=== PATIENT | female | born 1980 | race Hispanic/Latino ===

== ENCOUNTER 2020-09-02 13:12 | Emergency (ER) | payer BC ==
--- NOTE | 2020-09-02 13:25 | EDM.PDOC ---
ED HPI GENERAL MEDICAL PROBLEM - General Chief Complaint: Chest Pain Stated Complaint: CHEST PAIN DOWN LEFT ARM Time Seen by Provider: 09/02/20 13:25 Source of Information: Reports: Patient, Old Records, RN, RN Notes Reviewed History Limitations: Reports: No Limitations - History of Present Illness INITIAL COMMENTS - FREE TEXT/NARRATIVE: Pt presents to ER with c/o acid burning from the upper stomach into her throat. Pt states the pain began about a week ago. She has been having trouble with food getting stuck when she tries to swallow, and often gags and has to vomit. Denies Hx of EGD/endoscopy. Admits to Hx of GERD, but has not had any relief with Omeprazole. Pt states that today the pain has been aching into the chest. Eating makes it worse. Nothing relieves the pain. Onset: Gradual Duration: Constant, Getting Worse Location: Reports: Chest, Abdomen Quality: Reports: Burning Severity: Severe Associated Symptoms: Reports: No Other Symptoms Treatments HATCH TENDER: Reports: Other Medication(s) (Omeprazole) - Related Data Allergies Allergy/AdvReac Type Severity Reaction Status Date / Time No Known Allergies Allergy Verified 05/01/18 07:31 Home Meds: Home Meds Albuterol [Proventil HFA] 1 - 2 puff INH ASDIRECTED 04/28/18 [History] Biotin 1 tab PO ASDIRECTED 04/28/18 [History] Blue-Green Algae [Spirulina] 500 mg PO DAILY 04/28/18 [History] Cranberry Ext/C/L. Sporogenes [Azo Cranberry] 1 tab PO DAILY 04/28/18 [History] EPINEPHrine [Epinephrine] 1 injection IM ASDIRECTED 04/28/18 [History] Levothyroxine 75 mcg PO DAILY 04/28/18 [History] Multivitamin with Minerals [Multiple Vitamin] 1 tab PO DAILY 04/28/18 [History] Superior-3/DHA/Epa/Fish Oil [Superior-3 Fish Oil 1,000 MG Sfgl] 1,000 mg PO DAILY 04/28/18 [History] Past Medical History HEENT History: Reports: Impaired Vision Other HEENT History: wears glasses Cardiovascular History: Reports: None Respiratory History: Reports: Asthma, Pneumonia, Recurrent Gastrointestinal History: Reports: GERD Genitourinary History: Reports: None PALLIATIVE CARE SPECIALIST History: Reports: Fibroids, Other (See Below) Other PALLIATIVE CARE SPECIALIST History: Ovarian cyst. breast biopsy due to fibroid Musculoskeletal History: Reports: Arthritis Neurological History: Reports: None Psychiatric History: Reports: None Endocrine/Metabolic History: Reports: Hypothyroidism, Obesity/BMI 30+, Other (See Below) Other Endocrine/Metabolic History: HX OF GOITER Hematologic History: Reports: Anemia, Iron Deficiency Immunologic History: Reports: None Oncologic (Cancer) History: Reports: None Dermatologic History: Reports: None - Infectious Disease History Infectious Disease History: Reports: Chicken Pox - Past Surgical History HEENT Surgical History: Reports: Oral Surgery Other HEENT Surgeries/Procedures: wisdom teeth removed Cardiovascular Surgical History: Reports: None GI Surgical History: Reports: None Female Surgical History: Reports: None Musculoskeletal Surgical History: Reports: None Social & Family History - Family History Family Medical History: No Pertinent Family History - Caffeine Use Caffeine Use: Reports: Coffee, Tea Other Caffeine Use: 1 cup - Living Situation & Occupation Living situation: Reports: with Family ED ROS GENERAL - Review of Systems Review Of Systems: Comprehensive ROS is negative, except as noted in HPI. ED EXAM, GENERAL - Physical Exam Exam: See Below Exam Limited By: No Limitations General Appearance: Alert, WD/WN, No Apparent Distress, Obese Eye Exam: Bilateral Eye: Normal Inspection Nose: Normal Inspection, Normal Mucosa, No Blood Throat/Mouth: Normal Inspection, Normal Lips, Normal Teeth, Normal Gums, Normal Oropharynx, Normal Voice, No Airway Compromise Head: Atraumatic, Normocephalic Neck: Normal Inspection, Supple, Non-Tender, Full Range of Motion Respiratory/Chest: No Respiratory Distress, Lungs Clear, Normal Breath Sounds, No Accessory Muscle Use, Chest Non-Tender Cardiovascular: Normal Peripheral Pulses, Regular Rate, Rhythm, No Edema, No Gallop, No JVD, No Murmur, No Rub GI/Abdominal: Normal Bowel Sounds, Soft, Non-Tender, No Organomegaly, No Distention, No Abnormal Bruit, No Mass Back Exam: Normal Inspection Extremities: Normal Inspection Neurological: Alert, Oriented, CN II-XII Intact, Normal Cognition, Normal Gait, No Motor/Sensory Deficits Psychiatric: Normal Affect, Normal Mood Skin Exam: Warm, Dry, Intact, Normal Color, No Rash #1 Interpretation EKG Date: 09/02/20 Time: 13:20 Rhythm: Other (SR) Rate (Beats/Min): 71 [place]: LAD-Left [place] Deviation P-Wave: Present QRS: Normal ST-T: Normal QT: Normal Comparison: NA - No Prior EKG Course - Orders/Labs/Meds Orders: Active Orders 24 hr Category Date Time Status EKG 12 Lead [EKG Documentation Completion] [RC] STAT Care 09/02/20 13:24 Act bernard Labs: Laboratory Tests 09/02/20 09/02/20 09/02/20 Range/Units 13:41 13:41 13:41 WBC 10.2 H (5.0-10.0) 10^3/uL RBC 4.49 (4.2-5.4) 10^6/uL Hgb 13.0 (12.0-16.0) g/dL Hct 39.6 (37.0-47.0) % MCV 88.2 (80-100) fL MCH 29.0 (27.0-34.0) pg MCHC 32.8 L (33.0-35.0) g/dL Plt Count 362 (150-450) 10^3/uL Neut % (Auto) 66.3 (42.2-75.2) % Lymph % (Auto) 20.3 L (20.5-50.1) % [place] % (Auto) 10.6 H (2-8) % Eos % (Auto) 2.5 (1.0-3.0) % Baso % (Auto) 0.3 (0.0-1.0) % D-Dimer, Quantitative 191 (0-400) ng/mL Sodium 137 (136-145) mmol/L Potassium 3.8 (3.5-5.1) mmol/L Chloride 101 (98-107) mmol/L Carbon Dioxide 28 (21-32) mmol/L Anion Gap 11.8 (7-13) mEq/L BUN 9 (7-18) mg/dL Creatinine 0.81 (0.55-1.02) mg/dL Est Cr Clr Drug Dosing TNP Estimated GFR (MDRD) > 60 BUN/Creatinine Ratio 11.1 (No establ ref range) Glucose 95 (70-99) mg/dL Calcium 8.1 L (8.5-10.1) mg/dL Total Bilirubin 0.7 (0.2-1.0) mg/dL AST 12 L (15-37) U/L ALT 22 (14-59) U/L Alkaline Phosphatase 100 (46-116) U/L Troponin I < 0.017 (0.000-0.056) ng/mL Total Protein 6.9 (6.4-8.2) g/dL Albumin 3.2 L (3.4-5.0) g/dL Globulin 3.7 Albumin/Globulin Ratio 0.86 Amylase 34 (25-115) U/L Lipase 66 L (73-393) U/L HCG, Qual Negative Meds: Medications Discontinued Medications Generic Name Dose Route Start Last Admin Trade Name Miguelq PRN Reason Stop Dose Admin Al Hydroxide/Mg Hydroxide 30 ml 09/02/20 13:34 09/02/20 13:47 Gi Cocktail Oral Solution 30 Ml PO 09/02/20 13:35 30 ml ONETIME ONE Administration Departure - Departure Time of Disposition: 14:59 Disposition: Home, Self-Care 01 Condition: Good Clinical Impression: Esophageal stricture GERD with esophagitis Qualifiers: Esophagitis bleeding: without hemorrhage Qualified Code(s): K21.00 - Gastro- esophageal reflux disease with esophagitis, without bleeding Instructions: Food Choices for Gastroesophageal Reflux Disease, Adult, Esophageal Stricture Forms: ED Department Discharge Additional Instructions: Rx: Famotidine 20mg Rx: Zofran 4mg Take your Omeprazole 40mg every day. Follow up in clinic next week for recheck and to consider a referral to a GI specialist for upper endoscopy and dilation of your esophagus if indicated. - My Orders Last 24 Hours: My Active Orders 09/02/20 13:24 EKG 12 Lead [EKG Documentation Completion] [RC] STAT - Assessment/Plan Last 24 Hours: My Active Orders 09/02/20 13:24 EKG 12 Lead [EKG Documentation Completion] [RC] STAT
[2020-09-02] MEDS ORDERED: GI Cocktail Oral Solution 30 ML PO ONE (13:34)
--- NOTE | 2020-09-02 14:09 | CR ---
EXAMINATION: Chest 1V Frontal SEX: Female AGE: 40 years CLINICAL HISTORY: 40-year-old obese female with chest pain. Interpretation: No cardiopulmonary abnormality. 1. Normal cardiac silhouette (size and configuration). No pulmonary vascular congestion, cephalization of flow, alveolar edema or dependent pleural fluid accumulation (no effusions). 2. No lung mass or hilar lymphadenopathy. 3. No alveolar consolidation (infiltrate), atelectasis, or peripheral "groundglass" interstitial lung densities. 4. No pneumothorax or pneumomediastinum. Midline tracheal bronchial airway unremarkable. 5. Bony thorax unremarkable. No free subdiaphragmatic air.
[2020-09-02 14:10] LABS: ANION GAP 11.8 mEq/L (7-13); CHLORIDE,CL 101 mmol/L (98-107); SODIUM,NA 137 mmol/L (136-145)
== END 2020-09-02 14:30 | disposition home or self-care (01) ==
LOC: DL.ED 13:12
DX: K21.00 Gastro-esophageal reflux disease with esophagitis, without bleeding (principal); K22.2 Esophageal obstruction; J45.909 Unspecified asthma, uncomplicated; E03.9 Hypothyroidism, unspecified; E66.9 Obesity, unspecified; Z79.899 Other long term (current) drug therapy; Z68.39 Body mass index [BMI] 39.0-39.9, adult
CPT/HCPCS: 36415; 71045; 80053; 82150; 83690; 84484; 84703; 85025; 85379; 93005; 99285; A9270; 93010; 99284

== ENCOUNTER 2022-03-26 06:33 | Day surgery (SDC) | payer BC ==
[~2022-03-26 06:33] MED LIST: Dextrose 5%-0.45% NaCl 1,000 ML IV SCH; Midazolam 1 MG/ML 2 ML SDV ONE; Sodium Chloride 0.9% 10 ML Syringe FLUSH PRN; fentaNYL 100 MCG/2 ML SDV ONE
[2022-03-26] MEDS ORDERED: Midazolam 1 MG/ML 2 ML SDV IV ONE ×3 (06:34→07:45)
[2022-03-26] MEDS ORDERED: fentaNYL 100 MCG/2 ML SDV IV ONE ×3 (06:34→07:43)
[2022-03-26] MEDS ORDERED: Sodium Chloride 0.9% 10 ML Syringe FLUSH SCH (09:00)
== END 2022-03-26 09:47 | disposition home or self-care (01) ==
LOC: DL.ENDO 06:33
PROVIDERS: ATTEND Internal Medicine Gastroenterology
DX: K29.50 Unspecified chronic gastritis without bleeding (principal); K31.A0 Gastric intestinal metaplasia, unspecified; E66.09 Other obesity due to excess calories; R73.9 Hyperglycemia, unspecified; Z68.39 Body mass index [BMI] 39.0-39.9, adult; Z91.09 Other allergy status, other than to drugs and biological substances; Z98.890 Other specified postprocedural states
CPT/HCPCS: 87077; J2250; J3010; J7042